=== PATIENT | female | born 1965 | race Caucasian/White ===

== ENCOUNTER 2017-08-14 16:58 | Emergency (ER) | payer BC ==
[2017-08-14 17:03] VITALS: BP 179/84; BMI 42.3
[2017-08-14] MEDS ORDERED: TORADOL 60 MG VIAL IM ONE (17:32)
[2017-08-14] MEDS ORDERED: PHENERGAN INJ 25 MG IM ONE (17:32)
--- NOTE | 2017-08-14 17:36 | DR.HEADACH ---
HPI - Time Seen Time seen: 17:34 - Primary Care Physician Primary Care Physician: RAISA - Complaint/Symptoms Chief Complaint Doctors Comments: Patient is complaining of occipital headache for the past four days getting worst today with pain getting worst but denies nausea, vomiting. diarrhea, cold or cough. States she has been taking tylenol and over Chief Complaint:: PT. STATES ON WEDNESDAY SHE HAD JOINT PAIN THEN BEGAN HAVING A PIERCING PAIN TO THE TOP, RIGHT SIDE OF HEAD. PAIN HAS WORSENED. PT. HAS BEEN TAKING MOTRIN AND TYLENOL OTC. PT. ALSO C/O NAUSEA. DENIES ANY OTHER SYMTPOMS. - Source History Provided: Patient - Mode of Arrival Mode of Arrival: Ambulatory - Timing Onset of Chief Complaint: 08/10/17 PMH - PMH Past Medical History: Yes Past Medical History: Arthritis, Diabetes, Hypertension Past Medical History Comment: PRE-DIABETIC Past Surgical History: Yes Surgical History: Hysterectomy, Tonsillectomy Past Surgical History Comment: BREAST REDUCTION, CARPAL TUNNEL, FOOT - Family History History of Family Medical Conditions: No - Social History Does patient currently use any type of tobacco product: No Have you used tobacco products in the last 12 months: No Type of Tobacco Use: None Does any household member use tobacco: No Alcohol Use: None Do you use any recreational Drugs:: No Lives With: Significant Other Lives Where: Home - infectious screening In the last 2 months have you had wt loss of >10#?: NO Have you had fever, night sweats or hemotysis?: No Have you traveled outside the country in the last 6 months?: No Isolation: Standard PE - Vital Signs Vitals: Temperature 97.8 F Pulse Rate 79 Respiratory Rate 18 Blood Pressure 179/84 O2 Sat by Pulse Oximetry 97 ROR - Labs Reviewed Laboratory Results Reviewed?: Yes (All x-ray results reviewed and discussed with patient) - XRAY XRAY Interpreted by: Radiologist (CT brain: No acute intracranial process can be identified.) - Diagnosis Discharge Problem: Headache, acute, Essential hypertension Sinusitis Qualifiers: Sinusitis location: sphenoidal - Discharge Plan Disposition: 01 HOME, SELF-CARE Condition: Stable Prescriptions: Tramadol HCl [ULTRAM 50 MG *] 50 mg PO Q6H PRN #8 tab PRN Reason: Pain - Follow ups/Referrals Follow ups/Referrals: FER KLINE [Primary Care Provider] - 3 days - Instructions Instructions: Sinusitis, Adult, General Headache Without Cause, [id number], Hypertension, [id number]
[2017-08-14] MEDS ORDERED: PHENERGAN INJ 25 MG ONE (17:59)
[2017-08-14] MEDS ORDERED: TORADOL 60 MG VIAL ONE (17:59)
--- NOTE | 2017-08-14 18:00 | CT ---
HISTORY: Headache Study: CT brain without contrast Comparison: None Technique: Multiple axial images of the brain were obtained from the skull base to the vertex without administra tion of IV contrast. Findings: No acute intraparenchymal hemorrhage or mass can be identified. No extra-axial fluid collections are seen. No alteration in the attenuation of the brain parenchyma can be identified to suggest acute o r subacute ischemic change. The ventricular system is symmetric and nondilated. The extracranial st ructures are grossly unremarkable. IMPRESSION: 1. No acute intracranial process can be identified. Reported By:
== END 2017-08-14 19:04 | disposition home or self-care (01) ==
LOC: ER 17:09
DX: R51 Headache (principal); I10 Essential (primary) hypertension; J01.30 Acute sphenoidal sinusitis, unspecified
CPT/HCPCS: 70450; 96372; 99282; 99283; J1885; J2550